=== PATIENT | female | born 1935 | race Two or more races ===

== ENCOUNTER → 2016-11-21 | Outpatient (CLI) | payer MEDICARE, OTHER ==
[~2016-11-21] VITALS: Ht 165.1 cm; Wt 72.6 kg
[~2016-11-21] MED LIST: ADENOSINE 61 MG in GIVE UN-DILUTED 0 ML IV ONE; ADENOSINE 90 MG/30 ML INJ IV ONE
== END | disposition home or self-care (01) ==
LOC: Rad HDHVI 09:23
PROVIDERS: ATTEND Internal Medicine Cardiovascular Disease
DX: I10 Essential (primary) hypertension (principal); E78.00 Pure hypercholesterolemia, unspecified; R07.89 Other chest pain; R06.02 Shortness of breath; R00.1 Bradycardia, unspecified
CPT/HCPCS: 78452; 93005; 93306; 96374; 96375; A9500; J0153

== ENCOUNTER → 2018-01-15 | Outpatient (CLI) | payer MEDICARE, OTHER ==
[~2018-01-15] VITALS: Ht 165.1 cm; Wt 73.0 kg
== END | disposition home or self-care (01) ==
LOC: Rad HDHVI 10:19
PROVIDERS: ATTEND Internal Medicine Cardiovascular Disease
DX: I10 Essential (primary) hypertension (principal); E78.00 Pure hypercholesterolemia, unspecified; I63.9 Cerebral infarction, unspecified
CPT/HCPCS: 78452; 93005; 96374; 96375; A9500; J0153

== ENCOUNTER → 2018-10-20 | Outpatient (CLI) | payer MEDICARE, OTHER ==
[~2018-10-20] VITALS: Ht 165.1 cm; Wt 74.8 kg
[~2018-10-20] MED LIST changes: -ADENOSINE 61 MG in GIVE UN-DILUTED 0 ML IV ONE; +ADENOSINE 63 MG in GIVE UN-DILUTED 0 ML IV ONE
== END | disposition home or self-care (01) ==
LOC: Rad HDHVI 13:22
PROVIDERS: ATTEND Internal Medicine Cardiovascular Disease
DX: R00.2 Palpitations (principal); E78.5 Hyperlipidemia, unspecified; I49.5 Sick sinus syndrome; R55 Syncope and collapse; R53.83 Other fatigue; R61 Generalized hyperhidrosis
CPT/HCPCS: 78452; 93005; 96374; 96375; A9500; J0153

== ENCOUNTER 2019-05-10 12:30 | Emergency (ER) | payer MEDICARE, OTHER ==
[~2019-05-10] VITALS: Ht 165.1 cm; Wt 69.9 kg
[2019-05-10 14:00] VITALS: BP 171/58
== END 2019-05-10 14:59 | disposition home or self-care (01) ==
LOC: EDUNIT# 12:30 → ER 12:36
DX: S52.514A Nondisplaced fracture of right radial styloid process, initial encounter for closed fracture (principal); S00.81XA Abrasion of other part of head, initial encounter; S60.512A Abrasion of left hand, initial encounter; I10 Essential (primary) hypertension; Z90.49 Acquired absence of other specified parts of digestive tract; Z90.710 Acquired absence of both cervix and uterus; Z88.8 Allergy status to other drugs, medicaments and biological substances; Z88.5 Allergy status to narcotic agent; W10.9XXA Fall (on) (from) unspecified stairs and steps, initial encounter; Y93.89 Activity, other specified; Y92.89 Other specified places as the place of occurrence of the external cause; Y99.8 Other external cause status
CPT/HCPCS: 29125; 70450; 73100; 73120

== ENCOUNTER → 2019-07-01 | Outpatient (CLI) | payer MEDICARE, OTHER ==
[~2019-07-01] MED LIST changes: -ADENOSINE 63 MG in GIVE UN-DILUTED 0 ML IV ONE; -ADENOSINE 90 MG/30 ML INJ IV ONE; +IOHEXOL 350 MG/ML 100ML IJ ONE
[2019-07-01 09:16] VITALS: BP 179/58
--- NOTE | 2019-07-01 09:20 | NUR ---
IV insertion IV access obtained, via clean sterile technique by inserting [22] gauge catheter at [L FOREARM] after [1] attempt(s). IV secured properly. No trauma to site. Patient tolerated procedure well.
--- NOTE | 2019-07-01 11:55 | NUR ---
IV removal IV DC'd with sterile technique BY LUCRETIA MCKENNA, catheter fully intact. Pressure dressing applied to site. Patient tolerated procedure well. Discharged with aftercare instructions per MD.
[2019-07-01 11:56] VITALS: BP 181/68
--- NOTE | 2019-07-01 11:56 | NUR ---
[facility] Discharge Instructions See e-MAR for any mediations given with this visit. Patient education given on disease process. Patient verbalized understanding. Previous labs reviewed. Patient discharged in stable condition with after care instructions and follow up appointment. NOTES CT BRAIN WITH IV CONTRAST PT BLOOD PRESSURE WAS ELEVATED. PT STATED SHE DID NOT TAKE HOME MEDICATIONS THIS MORNING FOR THE EXAM. WHILE IN OFFICE PT TOOK PO HOME BLOOD PRESSURE MEDICATIONS. AFTER CT, PT BLOOD PRESSURE RETURNED TO BASELINE ARRIVAL BP. PT DECLINED WANTING TO WAIT FURTHER TO SEE IF BLOOD PRESSURE WOULD COME DOWN. PT STATED SHE HAS ANOTHER BLOOD PRESSURE PRN PILL AT HOME SHE CAN TAKE. PT REMAINS ASYMPTOMATIC AND DECLINES CHEST PAIN, HEADACHES, PALPITATIONS, OR BLURRY VISION. PT EDUCATED TO CHECK BLOOD PRESSURE IN 30 MINS ONCE HOME AND TAKE NORMAL SCHEDULE PRN BLOOD PRESSURE PILL. PT EDUCATED THAT IF BLOOD PRESSURE DOESN'T COME DOWN TO PATIENTS NORMAL BASELINE THAT SHE NEEDS TO RETURN TO CLINIC OR SEEK MEDICAL ATTENTION. PT VERBALIZED UNDERSTANDING. Addendum: 07/01/19 at 1207 by LUCRETIA FENG RN PT ALSO EDUCATED TO INCREASE ORAL HYDRATION OVER THE NEXT 24 HOURS. PT VERBALIZED UNDERSTANDING.
== END | disposition home or self-care (01) ==
LOC: Rad HDHVI 09:02
PROVIDERS: ATTEND Internal Medicine Cardiovascular Disease
DX: I67.2 Cerebral atherosclerosis (principal); G31.9 Degenerative disease of nervous system, unspecified; I67.82 Cerebral ischemia; R94.4 Abnormal results of kidney function studies; I72.9 Aneurysm of unspecified site; R51 Headache
CPT/HCPCS: 36415; 70496; 82565; G0463; Q9967

== ENCOUNTER → 2019-10-19 | Outpatient (CLI) | payer MEDICARE, OTHER ==
[~2019-10-19] VITALS: Ht 165.1 cm; Wt 71.7 kg
[~2019-10-19] MED LIST changes: +ADENOSINE 60 MG in GIVE UN-DILUTED 0 ML IV ONE; +ADENOSINE 90 MG/30 ML INJ IV ONE; -IOHEXOL 350 MG/ML 100ML IJ ONE
== END | disposition home or self-care (01) ==
LOC: Rad HDHVI 09:27
PROVIDERS: ATTEND Internal Medicine Cardiovascular Disease
DX: I10 Essential (primary) hypertension (principal); Z79.899 Other long term (current) drug therapy
CPT/HCPCS: 78452; 93005; 96374; 96375; A9500; J0153

== ENCOUNTER → 2020-03-23 | Outpatient (CLI) | payer MEDICARE, OTHER | END | disposition home or self-care (01) | LOC: Rad HDHVI 13:03 | PROVIDERS: ATTEND Internal Medicine Cardiovascular Disease | DX: I67.2 Cerebral atherosclerosis (principal); I67.82 Cerebral ischemia; G31.89 Other specified degenerative diseases of nervous system | CPT/HCPCS: 70450 ==

== ENCOUNTER → 2020-04-01 | Outpatient (CLI) | payer MEDICARE, OTHER | END | disposition home or self-care (01) | LOC: Rad HDHVI 10:09 | PROVIDERS: ATTEND Internal Medicine Cardiovascular Disease | DX: I63.9 Cerebral infarction, unspecified (principal); G45.9 Transient cerebral ischemic attack, unspecified | CPT/HCPCS: 93880 ==

== ENCOUNTER → 2020-04-04 | Outpatient (CLI) | payer MEDICARE, OTHER | END | disposition home or self-care (01) | LOC: Rad HDHVI 11:06 | PROVIDERS: ATTEND Internal Medicine Cardiovascular Disease | DX: R00.2 Palpitations (principal); R06.02 Shortness of breath; I10 Essential (primary) hypertension | CPT/HCPCS: 93306 ==

== ENCOUNTER → 2020-04-22 | Outpatient (CLI) | payer MEDICARE, OTHER ==
[~2020-04-22] MED LIST changes: -ADENOSINE 60 MG in GIVE UN-DILUTED 0 ML IV ONE; -ADENOSINE 90 MG/30 ML INJ IV ONE; +ASPI-543 PO; +ATEN-60 PO; +DOXA2TAB PO; +EST0625T PO; +FAMO40TA7 PO; +LEVO50TA7 PO; +MULT-1018 PO; +OLME40TA26 PO; +OMEG120015 PO; +OMEG120017 PO; +PANT20TA59 PO
[2020-04-22 10:48] VITALS: BP 147/63
--- NOTE | 2020-04-22 10:48 | NUR ---
CLINIC PT ARRIVED TO THE [facility] FOR PRE OP LHC EKG, CXR, AND LABS RE CHF, HTN, SOB TIA, EDEMA,A/OX4, AMBULATORY, BREATHING IS EVEN AND UNLABORED.
--- NOTE | 2020-04-22 10:52 | NUR ---
EKG DONE BY GABRIELLA MCKENNA REVIEWED BY SIVAKUMAR ROJAS SB [id number]
[2020-04-22 11:02] VITALS: BP 172/62
--- NOTE | 2020-04-22 11:02 | NUR ---
Pre-Op Discharge Summary: See e-MAR for any medications given for this visit. Pre-op orders received and carried out per MD of EKG, LABS and chest xrays. Patient given a copy of EKG with instructions to go to [facility] out patient for further follow up care. NOTE EKG DONE BY GABRIELLA MCKENNA REVIEWED BY SIVAKUMAR ROJAS
[2020-04-22 11:39] LABS: Basophils # (auto) 0 10 ^3/uL (0-0.2); Basophils % (auto) 0.8 % (0.0-2.0); Eosinophils # (auto) 0.1 10 ^3/uL (0-0.8); Eosinophils % (auto) 1.9 % (0.0-7.0); Hematocrit 33.6 % (36.0-46.0); Hemoglobin 11.6 g/dL (12.2-16.2); Lymphocytes # (auto) 0.6 10 ^3/uL (0.4-5.4); Lymphocytes % (auto) 15.2 % (10.0-50.0); Mean Corpuscular Hemoglobin 30.8 pg (28.0-32.0); Mean Corpuscular Hgb Conc. 34.5 g/dL (32.0-36.0); Mean Corpuscular Volume 89.2 fL (80.0-100.0); Monocytes # (auto) 0.4 10 ^3/uL (0-1.3); Monocytes % (auto) 11.1 % (0.0-12.0); Neutrophils # (auto) 2.8 10 ^3/uL (1.6-8.6); Nucleated Red Blood Cells % 0.1 %; Platelet Count (auto) 214 10^3/uL (140-450); Red Blood Cells 3.77 10^6/uL (4.0-5.20); Red Cell Distribution Width 14.5 % (11.8-14.3)
[2020-04-22 12:00] LABS: INR 1.03 (0.9-1.15); Partial Thromboplastin Time 28.5 sec (23.0-31.2)
[2020-04-22 12:03] LABS: Potassium 4.2 mmol/L (3.5-5.1)
[2020-04-22 12:11] LABS: BUN/Creatinine Ratio 12.4; Calcium 9.1 mg/dL (8.5-10.1)
== END | disposition home or self-care (01) ==
LOC: Rad HDHVI 10:15
PROVIDERS: ATTEND Internal Medicine Cardiovascular Disease
DX: Z01.812 Encounter for preprocedural laboratory examination (principal); I70.0 Atherosclerosis of aorta; I10 Essential (primary) hypertension
CPT/HCPCS: 36415; 71046; 80048; 85025; 85610; 85730; 93005; G0463

== ENCOUNTER 2020-04-28 07:53 | Day surgery (SDC) | payer MEDICARE, OTHER ==
[~2020-04-28] VITALS: Ht 165.1 cm; Wt 70.3 kg
[2020-04-28] MEDS ORDERED: LIDOCAINE 2%HCL (LOCAL ANESTH.) INJ 20ML MDV ONE (09:42)
[2020-04-28] MEDS ORDERED: IOHEXOL 350 MG/ML 100ML IJ ONE (09:42)
[2020-04-28] MEDS ORDERED: ANGIOMAX 250 MG VIAL IV ONE (10:05)
[2020-04-28] MEDS ORDERED: MIDAZOLAM HCL 1MG/1ML-2 ML VIAL ONE (10:06)
[2020-04-28] MEDS ORDERED: fentaNYL CITRATE 100 MCG/2 ML VL ONE (10:06)
[2020-04-28] MEDS ORDERED: SODIUM CHL 0.9% 0 ML ONE (10:06)
[2020-04-28] MEDS ORDERED: ENALAPRILAT 1.25 MG/ML-1ML VIAL IV ONE (10:15)
[2020-04-28] MEDS ORDERED: hydrALAZINE HCL 20 MG/ML VL ONE (10:27)
== END 2020-04-28 12:48 | disposition home or self-care (01) ==
LOC: CATH 07:53
PROVIDERS: ATTEND Internal Medicine Cardiovascular Disease
DX: R07.89 Other chest pain (principal); I10 Essential (primary) hypertension; E78.5 Hyperlipidemia, unspecified; Z87.891 Personal history of nicotine dependence; Z79.82 Long term (current) use of aspirin; Z88.1 Allergy status to other antibiotic agents; Z20.828 Contact with and (suspected) exposure to other viral communicable diseases; Z98.890 Other specified postprocedural states; Z79.899 Other long term (current) drug therapy; Z88.5 Allergy status to narcotic agent; Z88.8 Allergy status to other drugs, medicaments and biological substances
CPT/HCPCS: 93458; C1760; C1894; J0360; J1644; J2250; J3010; J7030; Q9967; U0003; 99152

== ENCOUNTER → 2021-03-24 | Outpatient (CLI) | payer MEDICARE, OTHER | END | disposition home or self-care (01) | LOC: Rad HDHVI 09:52 | PROVIDERS: ATTEND Internal Medicine Cardiovascular Disease | DX: I65.23 Occlusion and stenosis of bilateral carotid arteries (principal); I10 Essential (primary) hypertension; R06.02 Shortness of breath | CPT/HCPCS: 93306; 93880 ==

== ENCOUNTER → 2021-08-16 | Outpatient (CLI) | payer MEDICARE, OTHER | END | disposition home or self-care (01) | LOC: Rad HDHVI 14:56 | PROVIDERS: ATTEND Internal Medicine Cardiovascular Disease | DX: I08.1 Rheumatic disorders of both mitral and tricuspid valves (principal); I73.9 Peripheral vascular disease, unspecified; E78.5 Hyperlipidemia, unspecified | CPT/HCPCS: 93306 ==

== ENCOUNTER → 2023-01-21 | Outpatient (CLI) | payer MEDICARE, OTHER ==
[~2023-01-21] MED LIST changes: -DOXA2TAB PO; +DOXA2TAB84 PO; -OLME40TA26 PO; +OLME40TA78 PO
== END | disposition home or self-care (01) ==
LOC: Rad HDHVI 15:04
PROVIDERS: ATTEND Internal Medicine Cardiovascular Disease
DX: I08.8 Other rheumatic multiple valve diseases (principal); I11.9 Hypertensive heart disease without heart failure; I65.21 Occlusion and stenosis of right carotid artery; R00.2 Palpitations
CPT/HCPCS: 93306; 93880

== ENCOUNTER 2023-03-01 14:43 | Inpatient (IN) | payer MEDICARE, OTHER ==
[~2023-03-01] VITALS: Ht 165.1 cm; Wt 70.9 kg
[2023-03-01 17:00] VITALS: BP 146/90; PULSE 109; RESP 16; TEMP 98.2; O2SAT 96
[2023-03-01 18:14] LABS: Basophils # (auto) 0 10 ^3/uL (0-0.2); Basophils % (auto) 0.6 % (0.0-2.0); Eosinophils # (auto) 0 10 ^3/uL (0-0.8); Eosinophils % (auto) 0.5 % (0.0-7.0); Hematocrit 33.4 % (36.0-46.0); Hemoglobin 10.6 g/dL (12.2-16.2); Lymphocytes # (auto) 0.5 10 ^3/uL (0.4-5.4); Lymphocytes % (auto) 10.2 % (10.0-50.0); Mean Corpuscular Hemoglobin 28.3 pg (28.0-32.0); Mean Corpuscular Hgb Conc. 31.8 g/dL (32.0-36.0); Mean Corpuscular Volume 89.1 fL (80.0-100.0); Monocytes # (auto) 0.4 10 ^3/uL (0-1.3); Monocytes % (auto) 7.9 % (0.0-12.0); Neutrophils # (auto) 4.1 10 ^3/uL (1.6-8.6); Neutrophils % (auto) 80.8 % (37.0-80.0); Nucleated Red Blood Cells % 0.1 %; Red Blood Cells 3.74 10^6/uL (4.0-5.20); Red Cell Distribution Width 15.8 % (11.8-14.3); White Blood Cell 5.1 10^3/uL (4.4-10.8)
[2023-03-01 18:22] LABS: Alanine Aminotransferase 26 U/L (7-40); Albumin 4.1 g/dL (3.2-4.8); Alkaline Phosphatase 99 U/L (46-116); Anion Gap 7.6 (5-15); Aspartate Aminotransferase 28 U/L (13-40); BUN/Creatinine Ratio 10.8 (10.0-20.0); Blood Urea Nitrogen 9 mg/dL (9-23); Carbon Dioxide 23.4 mmol/L (20-30); Chloride 99 mmol/L (98-107); Glucose 116 mg/dL (74-106); Potassium 3.9 mmol/L (3.5-5.1); Sodium 130 mmol/L (136-145); Total Protein 6.9 g/dL (5.7-8.2)
[2023-03-01 18:43] VITALS: BP 146/90; PULSE 109; RESP 16; TEMP 98.2; O2SAT 96
[2023-03-01] MEDS ORDERED: NITROGLYCERIN 0.4 MG SL TAB SL PRN (18:45)
[2023-03-01] MEDS: FUROSEMIDE 40 MG/4 ML VIAL IV SCH (18:47)
[2023-03-01] MEDS: SODIUM CHLORIDE 0.9% 1,000 ML IV SCH (18:47)
[2023-03-01 20:00] VITALS: BP 131/70; PULSE 110; RESP 18; TEMP 97.6; O2SAT 95
[2023-03-01] MEDS: ALPRAZolam 0.25 MG TAB PO SCH (21:41)
[2023-03-01 22:00] VITALS: BP 131/70; PULSE 110; RESP 18; TEMP 97.6; O2SAT 95
[2023-03-02 05:00] VITALS: BP 148/77; PULSE 104; RESP 20; TEMP 98.2; O2SAT 90
[2023-03-02] MEDS: FUROSEMIDE 40 MG/4 ML VIAL IV SCH ×2 (05:37→18:11)
[2023-03-02] MEDS: LEVOTHYROXINE SODIUM 100 MCG TAB PO SCH (06:05)
[2023-03-02 09:00] VITALS: BP 139/79; PULSE 113; RESP 18; TEMP 97.3; O2SAT 92
[2023-03-02] MEDS: ALPRAZolam 0.25 MG TAB PO SCH ×2 (10:00→21:35)
[2023-03-02] MEDS: POTASSIUM CHL 20 Meq TABLET PO SCH (10:26)
[2023-03-02 13:00] VITALS: BP 149/78; PULSE 111; RESP 18; TEMP 97.5; O2SAT 94
[2023-03-02] MEDS: SODIUM FERR GLUC 62.5MG/5ML 125 MG in SODIUM CHL 0.9% 100 ML IV SCH (13:15)
[2023-03-02 17:00] VITALS: BP 143/93; PULSE 112; RESP 19; TEMP 97.8; O2SAT 93
[2023-03-02 22:00] VITALS: BP 148/75; PULSE 117; RESP 19; TEMP 97.7; O2SAT 94
[2023-03-03] VITALS (7 sets, daily range): BP systolic 135–159; BP diastolic 52–79; PULSE 115–118; RESP 16–20; TEMP 97.5–98.7; O2SAT 90–92
[2023-03-03] MEDS: FUROSEMIDE 40 MG/4 ML VIAL IV SCH ×3 (05:38→17:12)
[2023-03-03] MEDS: LEVOTHYROXINE SODIUM 100 MCG TAB PO SCH (06:31)
[2023-03-03] MEDS: POTASSIUM CHL 20 Meq TABLET PO SCH (09:31)
[2023-03-03 10:52] LABS: Basophils # (auto) 0 10 ^3/uL (0-0.2); Basophils % (auto) 0.4 % (0.0-2.0); Eosinophils # (auto) 0 10 ^3/uL (0-0.8); Eosinophils % (auto) 0.5 % (0.0-7.0); Hematocrit 32.6 % (36.0-46.0); Hemoglobin 10.6 g/dL (12.2-16.2); Lymphocytes # (auto) 0.4 10 ^3/uL (0.4-5.4); Lymphocytes % (auto) 6.8 % (10.0-50.0); Mean Corpuscular Hemoglobin 28.3 pg (28.0-32.0); Mean Corpuscular Hgb Conc. 32.5 g/dL (32.0-36.0); Mean Corpuscular Volume 86.9 fL (80.0-100.0); Monocytes # (auto) 0.5 10 ^3/uL (0-1.3); Monocytes % (auto) 9.2 % (0.0-12.0); Neutrophils # (auto) 4.4 10 ^3/uL (1.6-8.6); Neutrophils % (auto) 83.1 % (37.0-80.0); Red Blood Cells 3.75 10^6/uL (4.0-5.20); Red Cell Distribution Width 15.3 % (11.8-14.3); White Blood Cell 5.3 10^3/uL (4.4-10.8)
[2023-03-03 11:15] LABS: Alanine Aminotransferase 28 U/L (7-40); Albumin 4.1 g/dL (3.2-4.8); Alkaline Phosphatase 90 U/L (46-116); Anion Gap 8.6 (5-15); Aspartate Aminotransferase 32 U/L (13-40); BUN/Creatinine Ratio 10.7 (10.0-20.0); Bilirubin, Total 1.3 mg/dL (0.2-1.0); Blood Urea Nitrogen 9 mg/dL (9-23); Calcium 9.1 mg/dL (8.5-10.1); Carbon Dioxide 28.4 mmol/L (20-30); Chloride 94 mmol/L (98-107); Glucose 161 mg/dL (74-106); Potassium 3.2 mmol/L (3.5-5.1); Sodium 131 mmol/L (136-145); Total Protein 6.9 g/dL (5.7-8.2)
[2023-03-03] MEDS ORDERED: SODIUM FERR GLUC 62.5MG/5ML 125 MG in SODIUM CHL 0.9% 100 ML IV SCH (12:00)
[2023-03-03] MEDS: SODIUM CHLORIDE 0.9% 1,000 ML IV SCH (16:36)
[2023-03-03] MEDS: LORazepam 0.5 MG TAB PO PRN (21:55)
[2023-03-04] VITALS (7 sets, daily range): BP systolic 142–162; BP diastolic 68–85; PULSE 103–119; RESP 16–22; TEMP 97.7–98.5; O2SAT 90–96
[2023-03-04] MEDS: FUROSEMIDE 40 MG/4 ML VIAL IV SCH ×2 (05:13→17:57)
[2023-03-04] MEDS: LEVOTHYROXINE SODIUM 100 MCG TAB PO SCH (05:54)
[2023-03-04] MEDS: POTASSIUM CHL 20 Meq TABLET PO SCH (07:59)
[2023-03-04] MEDS: SODIUM FERR GLUC 62.5MG/5ML 125 MG in SODIUM CHL 0.9% 100 ML IV SCH (12:58)
[2023-03-04] MEDS: SODIUM CHLORIDE 0.9% 1,000 ML IV SCH (17:56)
[2023-03-04] MEDS: LORazepam 0.5 MG TAB PO PRN (22:27)
[2023-03-05] VITALS (7 sets, daily range): BP systolic 136–152; BP diastolic 65–75; PULSE 116–128; RESP 16–20; TEMP 97.5–98.1; O2SAT 90–97
[2023-03-05] MEDS: FUROSEMIDE 40 MG/4 ML VIAL IV SCH ×2 (05:19→18:19)
[2023-03-05] MEDS: LEVOTHYROXINE SODIUM 100 MCG TAB PO SCH (05:50)
[2023-03-05 07:01] LABS: Chloride 94 mmol/L (98-107); Sodium 130 mmol/L (136-145)
[2023-03-05 07:02] LABS: Anion Gap 6.6 (5-15); Carbon Dioxide 29.4 mmol/L (20-30)
[2023-03-05 07:07] LABS: BUN/Creatinine Ratio 11.8 (10.0-20.0); Blood Urea Nitrogen 10 mg/dL (9-23); Glucose 108 mg/dL (74-106)
[2023-03-05 07:10] LABS: Potassium 2.7 mmol/L (3.5-5.1)
[2023-03-05 07:25] LABS: Basophils # (auto) 0 10 ^3/uL (0-0.2); Basophils % (auto) 0.3 % (0.0-2.0); Eosinophils # (auto) 0.1 10 ^3/uL (0-0.8); Eosinophils % (auto) 1.4 % (0.0-7.0); Hematocrit 34.2 % (36.0-46.0); Hemoglobin 11.6 g/dL (12.2-16.2); Lymphocytes # (auto) 0.5 10 ^3/uL (0.4-5.4); Lymphocytes % (auto) 10.2 % (10.0-50.0); Mean Corpuscular Hgb Conc. 33.8 g/dL (32.0-36.0); Monocytes # (auto) 0.5 10 ^3/uL (0-1.3); Monocytes % (auto) 8.7 % (0.0-12.0); Neutrophils # (auto) 4.2 10 ^3/uL (1.6-8.6); Neutrophils % (auto) 79.4 % (37.0-80.0); Nucleated Red Blood Cells % 0.1 %; Red Blood Cells 3.98 10^6/uL (4.0-5.20); Red Cell Distribution Width 15.3 % (11.8-14.3); White Blood Cell 5.3 10^3/uL (4.4-10.8)
[2023-03-05] MEDS ORDERED: POTASSIUM CHL 20 Meq TABLET PO ONE (07:30)
[2023-03-05] MEDS ORDERED: POTASSIUM CHLORIDE 60 MEQ, LIDOCAINE 1% (LOCAL ANESTH.) 6 ML in SODIUM CHL 0.9% 500 ML IV ONE (08:00)
[2023-03-05] MEDS: POTASSIUM CHL 20 Meq TABLET PO SCH (09:16)
[2023-03-05] MEDS: SODIUM FERR GLUC 62.5MG/5ML 125 MG in SODIUM CHL 0.9% 100 ML IV SCH (13:33)
[2023-03-05] MEDS: ACETAMINOPHEN 325 MG TAB PO PRN ×2 (15:42→21:25)
[2023-03-05] MEDS: SODIUM CHLORIDE 0.9% 1,000 ML IV SCH (17:00)
[2023-03-05] MEDS: LORazepam 0.5 MG TAB PO PRN (21:23)
[2023-03-06] VITALS (7 sets, daily range): BP systolic 109–142; BP diastolic 55–79; PULSE 82–120; RESP 16–20; TEMP 97.5–97.8; O2SAT 93–97
[2023-03-06] MEDS: FUROSEMIDE 40 MG/4 ML VIAL IV SCH ×2 (05:12→17:39)
[2023-03-06] MEDS: ACETAMINOPHEN 325 MG TAB PO PRN ×3 (05:44→22:11)
[2023-03-06] MEDS: LEVOTHYROXINE SODIUM 50 MCG TAB PO SCH (05:44)
[2023-03-06] MEDS: POTASSIUM CHL 20 Meq TABLET PO SCH (09:27)
[2023-03-06] MEDS: ATENOLOL 25 MG TAB PO SCH (09:28)
[2023-03-06] MEDS: SODIUM FERR GLUC 62.5MG/5ML 125 MG in SODIUM CHL 0.9% 100 ML IV SCH (13:16)
[2023-03-06] MEDS: SODIUM CHLORIDE 0.9% 1,000 ML IV SCH (17:00)
[2023-03-06] MEDS: DOCUSATE SOD 100 MG CAP PO SCH (22:06)
[2023-03-06] MEDS: AMIODARONE HCL 200 MG TAB PO SCH (22:08)
[2023-03-06] MEDS: LORazepam 0.5 MG TAB PO PRN (22:11)
[2023-03-07 05:00] VITALS: BP 138/75; PULSE 105; RESP 18; TEMP 97.7; O2SAT 95
[2023-03-07] MEDS: FUROSEMIDE 40 MG/4 ML VIAL IV SCH ×2 (06:22→17:58)
[2023-03-07] MEDS: LEVOTHYROXINE SODIUM 50 MCG TAB PO SCH (06:22)
[2023-03-07 08:00] VITALS: BP 134/63; PULSE 84; PULSE 88; RESP 20; TEMP 97.7; O2SAT 91
[2023-03-07] MEDS: ATENOLOL 25 MG TAB PO SCH ×2 (08:36→10:00)
[2023-03-07] MEDS: ACETAMINOPHEN 325 MG TAB PO PRN ×2 (09:18→21:50)
[2023-03-07] MEDS: DOCUSATE SOD 100 MG CAP PO SCH ×2 (09:18→21:50)
[2023-03-07] MEDS: POTASSIUM CHL 20 Meq TABLET PO SCH (09:19)
[2023-03-07] MEDS: AMIODARONE HCL 200 MG TAB PO SCH ×2 (09:19→21:49)
[2023-03-07 11:13] LABS: Basophils # (auto) 0 10 ^3/uL (0-0.2); Basophils % (auto) 0.5 % (0.0-2.0); Eosinophils # (auto) 0 10 ^3/uL (0-0.8); Eosinophils % (auto) 0.6 % (0.0-7.0); Hemoglobin 12.4 g/dL (12.2-16.2); Lymphocytes # (auto) 0.4 10 ^3/uL (0.4-5.4); Mean Corpuscular Hemoglobin 28.7 pg (28.0-32.0); Mean Corpuscular Hgb Conc. 32.6 g/dL (32.0-36.0); Monocytes # (auto) 0.4 10 ^3/uL (0-1.3); Monocytes % (auto) 6.3 % (0.0-12.0); Neutrophils # (auto) 6.2 10 ^3/uL (1.6-8.6); Neutrophils % (auto) 86.6 % (37.0-80.0); Nucleated Red Blood Cells % 0.1 %; Red Blood Cells 4.32 10^6/uL (4.0-5.20); Red Cell Distribution Width 15.8 % (11.8-14.3); White Blood Cell 7.1 10^3/uL (4.4-10.8)
[2023-03-07 11:20] LABS: Chloride 93 mmol/L (98-107); Potassium 3.6 mmol/L (3.5-5.1); Sodium 128 mmol/L (136-145)
[2023-03-07 11:21] LABS: Anion Gap 7 (5-15); Carbon Dioxide 28 mmol/L (20-30)
[2023-03-07 11:22] LABS: Calcium 9.3 mg/dL (8.7-10.4)
[2023-03-07 11:26] LABS: Glucose 159 mg/dL (74-106)
[2023-03-07 11:27] LABS: BUN/Creatinine Ratio 14.4 (10.0-20.0); Blood Urea Nitrogen 14 mg/dL (9-23)
[2023-03-07 12:00] VITALS: BP 129/63; PULSE 72; RESP 18; TEMP 97.3; O2SAT 95
[2023-03-07 16:00] VITALS: BP 102/61; PULSE 79; RESP 19; TEMP 97.4; O2SAT 94
[2023-03-07] MEDS: SODIUM CHLORIDE 0.9% 1,000 ML IV SCH (17:54)
[2023-03-07 20:00] VITALS: PULSE 99; O2SAT 93
[2023-03-07] MEDS: LORazepam 0.5 MG TAB PO PRN (21:50)
[2023-03-07 22:00] VITALS: BP 132/61; PULSE 93; RESP 16; TEMP 97.8; O2SAT 94
[2023-03-08] VITALS (7 sets, daily range): BP systolic 107–142; BP diastolic 55–71; PULSE 70–95; RESP 16–19; TEMP 97.2–98.2; O2SAT 91–99
[2023-03-08] MEDS: LEVOTHYROXINE SODIUM 50 MCG TAB PO SCH (06:37)
[2023-03-08] MEDS: FUROSEMIDE 40 MG/4 ML VIAL IV SCH ×2 (06:42→15:41)
[2023-03-08] MEDS: ATENOLOL 25 MG TAB PO SCH (09:07)
[2023-03-08] MEDS: ACETAMINOPHEN 325 MG TAB PO PRN ×2 (09:09→15:39)
[2023-03-08] MEDS: POTASSIUM CHL 20 Meq TABLET PO SCH (09:56)
[2023-03-08] MEDS: AMIODARONE HCL 200 MG TAB PO SCH ×2 (09:56→21:23)
[2023-03-08] MEDS: DOCUSATE SOD 100 MG CAP PO SCH ×2 (09:56→21:23)
[2023-03-08] MEDS: LORazepam 0.5 MG TAB PO PRN (21:23)
[2023-03-09] VITALS (7 sets, daily range): BP systolic 104–130; BP diastolic 63–80; PULSE 59–98; RESP 18–22; TEMP 36.6; O2SAT 92–100
[2023-03-09] MEDS: LEVOTHYROXINE SODIUM 50 MCG TAB PO SCH (06:07)
[2023-03-09 07:21] LABS: Chloride 93 mmol/L (98-107); Potassium 3.8 mmol/L (3.5-5.1); Sodium 127 mmol/L (136-145)
[2023-03-09 07:22] LABS: Anion Gap 10 (5-15); Calcium 9.3 mg/dL (8.7-10.4); Carbon Dioxide 24 mmol/L (20-30)
[2023-03-09 07:27] LABS: BUN/Creatinine Ratio 19.3 (10.0-20.0); Blood Urea Nitrogen 23 mg/dL (9-23); Glucose 122 mg/dL (74-106)
[2023-03-09] MEDS: ATENOLOL 25 MG TAB PO SCH (08:30)
[2023-03-09] MEDS: FUROSEMIDE 40 MG/4 ML VIAL IV SCH (10:00)
[2023-03-09] MEDS: DOCUSATE SOD 100 MG CAP PO SCH ×2 (10:25→20:55)
[2023-03-09] MEDS: POTASSIUM CHL 20 Meq TABLET PO SCH (10:25)
[2023-03-09] MEDS: ACETAMINOPHEN 325 MG TAB PO PRN (10:26)
[2023-03-09] MEDS: AMIODARONE HCL 200 MG TAB PO SCH ×2 (10:26→20:55)
[2023-03-09] MEDS: LORazepam 0.5 MG TAB PO PRN (20:53)
[2023-03-10] VITALS (7 sets, daily range): BP systolic 109–143; BP diastolic 54–77; PULSE 72–90; RESP 16–19; TEMP 97.6–98.1; O2SAT 95–100
[2023-03-10] MEDS: LEVOTHYROXINE SODIUM 50 MCG TAB PO SCH (06:13)
[2023-03-10] MEDS: ATENOLOL 25 MG TAB PO SCH (07:37)
[2023-03-10] MEDS: DOCUSATE SOD 100 MG CAP PO SCH ×2 (10:05→21:11)
[2023-03-10] MEDS: AMIODARONE HCL 200 MG TAB PO SCH ×2 (10:05→21:11)
[2023-03-10] MEDS: POTASSIUM CHL 20 Meq TABLET PO SCH (10:05)
[2023-03-10] MEDS: FUROSEMIDE 40 MG/4 ML VIAL IV SCH (10:06)
[2023-03-10] MEDS: ACETAMINOPHEN 325 MG TAB PO PRN (12:56)
[2023-03-10] MEDS: LORazepam 0.5 MG TAB PO PRN (21:11)
[2023-03-11] VITALS (7 sets, daily range): BP systolic 102–135; BP diastolic 54–78; PULSE 82–88; RESP 15–22; TEMP 97.3–97.9; O2SAT 94–100
[2023-03-11] MEDS: LEVOTHYROXINE SODIUM 50 MCG TAB PO SCH (06:06)
[2023-03-11] MEDS: AMIODARONE HCL 200 MG TAB PO SCH ×3 (10:00→21:08)
[2023-03-11] MEDS: FUROSEMIDE 40 MG/4 ML VIAL IV SCH (12:16)
[2023-03-11] MEDS: DOCUSATE SOD 100 MG CAP PO SCH ×2 (12:16→21:07)
[2023-03-11] MEDS: ATENOLOL 25 MG TAB PO SCH (12:17)
[2023-03-11] MEDS: POTASSIUM CHL 20 Meq TABLET PO SCH (12:17)
[2023-03-11] MEDS: ACETAMINOPHEN 325 MG TAB PO PRN (19:59)
[2023-03-11] MEDS: LORazepam 0.5 MG TAB PO PRN (21:07)
[2023-03-12 06:02] VITALS: BP 138/79; PULSE 76; RESP 15; O2SAT 95
[2023-03-12] MEDS: LEVOTHYROXINE SODIUM 50 MCG TAB PO SCH (06:13)
[2023-03-12 08:00] VITALS: PULSE 87
[2023-03-12 08:43] VITALS: BP 142/69; PULSE 85; RESP 18; TEMP 97.4; O2SAT 93
[2023-03-12] MEDS: FUROSEMIDE 40 MG/4 ML VIAL IV SCH (09:15)
[2023-03-12] MEDS: AMIODARONE HCL 200 MG TAB PO SCH ×2 (09:15→21:41)
[2023-03-12] MEDS: ATENOLOL 25 MG TAB PO SCH (09:15)
[2023-03-12] MEDS: DOCUSATE SOD 100 MG CAP PO SCH ×2 (09:23→21:41)
[2023-03-12] MEDS: POTASSIUM CHL 20 Meq TABLET PO SCH (10:00)
[2023-03-12 13:00] VITALS: BP 109/48; PULSE 67; RESP 18; TEMP 98; O2SAT 98
[2023-03-12 14:44] LABS: Anion Gap 7 (5-15); Carbon Dioxide 26 mmol/L (20-30); Chloride 93 mmol/L (98-107); Potassium 4.6 mmol/L (3.5-5.1); Sodium 126 mmol/L (136-145)
[2023-03-12 14:45] LABS: Calcium 9.4 mg/dL (8.7-10.4)
[2023-03-12 14:50] LABS: BUN/Creatinine Ratio 26.6 (10.0-20.0); Blood Urea Nitrogen 37 mg/dL (9-23); Glucose 130 mg/dL (74-106)
[2023-03-12 16:43] VITALS: BP 131/85; PULSE 84; RESP 16; TEMP 97.5; O2SAT 97
[2023-03-12] MEDS: ACETAMINOPHEN 325 MG TAB PO PRN (17:35)
[2023-03-12 20:00] VITALS: PULSE 79; PULSE 83; RESP 19; O2SAT 92
[2023-03-12] MEDS: LORazepam 0.5 MG TAB PO PRN (21:47)
[2023-03-13] VITALS (8 sets, daily range): BP systolic 116–137; BP diastolic 62–80; PULSE 67–91; RESP 18–20; TEMP 95–98.2; O2SAT 90–99
[2023-03-13] MEDS: LEVOTHYROXINE SODIUM 50 MCG TAB PO SCH (06:45)
[2023-03-13] MEDS: POTASSIUM CHL 20 Meq TABLET PO SCH (09:20)
[2023-03-13] MEDS: ATENOLOL 25 MG TAB PO SCH (09:20)
[2023-03-13] MEDS: DOCUSATE SOD 100 MG CAP PO SCH ×2 (09:20→22:49)
[2023-03-13] MEDS: AMIODARONE HCL 200 MG TAB PO SCH ×2 (09:21→22:49)
[2023-03-13] MEDS: FUROSEMIDE 40 MG/4 ML VIAL IV SCH (11:14)
[2023-03-13] MEDS: LORazepam 0.5 MG TAB PO PRN (12:06)
[2023-03-14] VITALS (7 sets, daily range): BP systolic 113–155; BP diastolic 52–80; PULSE 71–88; RESP 15–20; TEMP 97.6–98.7; O2SAT 90–99
[2023-03-14] MEDS: LEVOTHYROXINE SODIUM 50 MCG TAB PO SCH (06:44)
[2023-03-14] MEDS: DOCUSATE SOD 100 MG CAP PO SCH ×2 (11:22→21:53)
[2023-03-14] MEDS: FUROSEMIDE 40 MG/4 ML VIAL IV SCH (11:22)
[2023-03-14] MEDS: ATENOLOL 25 MG TAB PO SCH (11:22)
[2023-03-14] MEDS: AMIODARONE HCL 200 MG TAB PO SCH ×2 (11:22→21:53)
[2023-03-14] MEDS: POTASSIUM CHL 20 Meq TABLET PO SCH (11:25)
[2023-03-14] MEDS: ACETAMINOPHEN 325 MG TAB PO PRN (21:54)
[2023-03-14] MEDS: LORazepam 0.5 MG TAB PO PRN (23:31)
[2023-03-15] VITALS (7 sets, daily range): BP systolic 111–140; BP diastolic 55–63; PULSE 61–89; RESP 14–21; TEMP 97.3–97.9; O2SAT 92–99
[2023-03-15] MEDS: LEVOTHYROXINE SODIUM 50 MCG TAB PO SCH (06:23)
[2023-03-15] MEDS: AMIODARONE HCL 200 MG TAB PO SCH ×2 (09:59→22:09)
[2023-03-15] MEDS: POTASSIUM CHL 20 Meq TABLET PO SCH (10:00)
[2023-03-15] MEDS: FUROSEMIDE 40 MG/4 ML VIAL IV SCH (10:00)
[2023-03-15] MEDS: DOCUSATE SOD 100 MG CAP PO SCH ×2 (10:00→22:09)
[2023-03-15] MEDS: ATENOLOL 25 MG TAB PO SCH (10:01)
[2023-03-15 14:13] LABS: COVID19 ANTIGEN SOFIA FIA NEGATIVE (NEGATIVE)
[2023-03-15] MEDS ORDERED: SODIUM CHL 3% 500 ML IV ONE (14:45)
[2023-03-15] MEDS: ACETAMINOPHEN 325 MG TAB PO PRN (22:28)
[2023-03-15] MEDS: LORazepam 0.5 MG TAB PO PRN (22:28)
[2023-03-16] VITALS (7 sets, daily range): BP systolic 109–134; BP diastolic 68–76; PULSE 79–92; RESP 18–23; TEMP 95.9–97.6; O2SAT 95–100
[2023-03-16] MEDS: LEVOTHYROXINE SODIUM 50 MCG TAB PO SCH (06:36)
[2023-03-16 07:12] LABS: Calcium 8.9 mg/dL (8.7-10.4); Chloride 105 mmol/L (98-107); Potassium 4.2 mmol/L (3.5-5.1); Sodium 138 mmol/L (136-145)
[2023-03-16 07:13] LABS: Anion Gap 7 (5-15); Carbon Dioxide 26 mmol/L (20-30)
[2023-03-16 07:18] LABS: BUN/Creatinine Ratio 21.2 (10.0-20.0); Blood Urea Nitrogen 25 mg/dL (9-23); Glucose 113 mg/dL (74-106)
[2023-03-16] MEDS ORDERED: OMNIPAQUE 12mg/ml 500ml ORAL SOLUTION PO ONE (09:55)
[2023-03-16] MEDS: AMIODARONE HCL 200 MG TAB PO SCH ×2 (10:23→21:48)
[2023-03-16] MEDS: POTASSIUM CHL 20 Meq TABLET PO SCH (10:23)
[2023-03-16] MEDS: DOCUSATE SOD 100 MG CAP PO SCH ×2 (10:23→21:52)
[2023-03-16] MEDS: ATENOLOL 25 MG TAB PO SCH (10:24)
[2023-03-16] MEDS: FUROSEMIDE 40 MG/4 ML VIAL IV SCH (10:24)
[2023-03-16] MEDS ORDERED: IOHEXOL 300 MG/ML 100ML BOTTLE IJ ONE (11:32)
[2023-03-16] MEDS: LORazepam 0.5 MG TAB PO PRN (22:13)
[2023-03-17] VITALS (7 sets, daily range): BP systolic 91–128; BP diastolic 62–80; PULSE 72–89; RESP 18–22; TEMP 97.6–98; O2SAT 95–99
[2023-03-17] MEDS: LEVOTHYROXINE SODIUM 50 MCG TAB PO SCH (06:01)
[2023-03-17] MEDS: FUROSEMIDE 40 MG/4 ML VIAL IV SCH (09:29)
[2023-03-17] MEDS: ATENOLOL 25 MG TAB PO SCH (09:29)
[2023-03-17] MEDS: DOCUSATE SOD 100 MG CAP PO SCH ×2 (09:30→21:06)
[2023-03-17] MEDS: AMIODARONE HCL 200 MG TAB PO SCH ×2 (09:30→21:06)
[2023-03-17] MEDS: POTASSIUM CHL 20 Meq TABLET PO SCH (09:30)
[2023-03-18] VITALS (7 sets, daily range): BP systolic 109–139; BP diastolic 65–74; PULSE 61–89; RESP 18–20; TEMP 97.6–98.6; O2SAT 93–98
[2023-03-18] MEDS: LORazepam 0.5 MG TAB PO PRN ×2 (00:12→21:34)
[2023-03-18] MEDS: LEVOTHYROXINE SODIUM 50 MCG TAB PO SCH (06:06)
[2023-03-18] MEDS: ATENOLOL 25 MG TAB PO SCH ×2 (08:51→08:53)
[2023-03-18] MEDS: FUROSEMIDE 40 MG/4 ML VIAL IV SCH ×3 (10:00→21:38)
[2023-03-18] MEDS: DOCUSATE SOD 100 MG CAP PO SCH ×2 (10:57→21:34)
[2023-03-18] MEDS: POTASSIUM CHL 20 Meq TABLET PO SCH (10:58)
[2023-03-18] MEDS: AMIODARONE HCL 200 MG TAB PO SCH ×2 (10:58→21:34)
[2023-03-18 11:08] LABS: Basophils # (auto) 0 10 ^3/uL (0-0.2); Basophils % (auto) 0.7 % (0.0-2.0); Eosinophils # (auto) 0 10 ^3/uL (0-0.8); Eosinophils % (auto) 0.6 % (0.0-7.0); Hematocrit 36.4 % (36.0-46.0); Lymphocytes # (auto) 0.4 10 ^3/uL (0.4-5.4); Mean Corpuscular Hemoglobin 29.1 pg (28.0-32.0); Mean Corpuscular Hgb Conc. 32.9 g/dL (32.0-36.0); Mean Corpuscular Volume 88.6 fL (80.0-100.0); Monocytes # (auto) 0.5 10 ^3/uL (0-1.3); Monocytes % (auto) 8.1 % (0.0-12.0); Neutrophils # (auto) 4.8 10 ^3/uL (1.6-8.6); Neutrophils % (auto) 83.6 % (37.0-80.0); Red Blood Cells 4.11 10^6/uL (4.0-5.20); Red Cell Distribution Width 17.4 % (11.8-14.3); White Blood Cell 5.7 10^3/uL (4.4-10.8)
[2023-03-18 11:18] LABS: Anion Gap 6 (5-15); Carbon Dioxide 27 mmol/L (20-30); Chloride 98 mmol/L (98-107); Potassium 3.9 mmol/L (3.5-5.1); Sodium 131 mmol/L (136-145)
[2023-03-18 11:19] LABS: Calcium 8.9 mg/dL (8.7-10.4)
[2023-03-18 11:24] LABS: Blood Urea Nitrogen 19 mg/dL (9-23); Glucose 125 mg/dL (74-106)
[2023-03-19] VITALS (9 sets, daily range): BP systolic 112–138; BP diastolic 50–71; PULSE 71–88; RESP 16–20; TEMP 94–98.7; O2SAT 91–97
[2023-03-19] MEDS: LEVOTHYROXINE SODIUM 50 MCG TAB PO SCH (06:25)
[2023-03-19] MEDS: AMIODARONE HCL 200 MG TAB PO SCH ×2 (09:05→21:58)
[2023-03-19] MEDS: POTASSIUM CHL 20 Meq TABLET PO SCH (09:07)
[2023-03-19] MEDS: DOCUSATE SOD 100 MG CAP PO SCH ×2 (09:07→21:57)
[2023-03-19] MEDS: ATENOLOL 25 MG TAB PO SCH (09:07)
[2023-03-19] MEDS: FUROSEMIDE 40 MG/4 ML VIAL IV SCH ×2 (09:08→21:58)
[2023-03-20 05:00] VITALS: BP 121/65; PULSE 89; RESP 18; TEMP 97.6; O2SAT 92
[2023-03-20] MEDS: LEVOTHYROXINE SODIUM 50 MCG TAB PO SCH (06:50)
[2023-03-20 07:53] LABS: COVID19 ANTIGEN SOFIA FIA NEGATIVE (NEGATIVE)
[2023-03-20 08:00] VITALS: PULSE 80; PULSE 89; RESP 17; O2SAT 93
[2023-03-20 08:30] VITALS: BP 130/70; PULSE 80; RESP 17; TEMP 97.6; O2SAT 93
[2023-03-20] MEDS: AMIODARONE HCL 200 MG TAB PO SCH (09:05)
[2023-03-20] MEDS: DOCUSATE SOD 100 MG CAP PO SCH (09:05)
[2023-03-20] MEDS: POTASSIUM CHL 20 Meq TABLET PO SCH (09:05)
[2023-03-20] MEDS: ATENOLOL 25 MG TAB PO SCH (09:06)
[2023-03-20] MEDS: FUROSEMIDE 40 MG/4 ML VIAL IV SCH (09:07)
[2023-03-20 12:20] VITALS: BP 123/61; PULSE 65; RESP 18; TEMP 94; O2SAT 98
[2023-03-20] MEDS ORDERED: ONDANSETRON HCL 4 MG/2 ML VIAL IV PRN (14:15)
[2023-03-20] MEDS: ACETAMINOPHEN 325 MG TAB PO PRN (15:00)
== END 2023-03-20 16:20 | DRG 641 ==
LOC: CENTRAL 14:43 → UNDOADMIN 14:43 → CENTRAL 18:34 → TELE-CENTR 03-05 12:32
PROVIDERS: ADMIT Internal Medicine Cardiovascular Disease; ATTEND Internal Medicine Cardiovascular Disease
DX: E87.1 Hypo-osmolality and hyponatremia (principal); I50.22 Chronic systolic (congestive) heart failure; E87.6 Hypokalemia; I11.0 Hypertensive heart disease with heart failure; Z20.822 Contact with and (suspected) exposure to COVID-19; E78.5 Hyperlipidemia, unspecified; I07.1 Rheumatic tricuspid insufficiency; E87.5 Hyperkalemia; R00.0 Tachycardia, unspecified; Z88.5 Allergy status to narcotic agent; Z88.1 Allergy status to other antibiotic agents
CPT/HCPCS: 36415; 71045; 74177; 80048; 80053; 82024; 82533; 82962; 83880; 83935; 84132; 85025; 85045; 87081; 87426; 93005; 97110; 97116; 97163; 97530; G0378; J2001; J2405

== ENCOUNTER 2023-04-10 20:37 | Inpatient (IN) | payer MEDICARE, OTHER ==
[~2023-04-10] VITALS: Ht 165.1 cm; Wt 69.7 kg
[2023-04-10 21:52] LABS: Basophils # (auto) 0 10 ^3/uL (0-0.2); Basophils % (auto) 0.1 % (0.0-2.0); Eosinophils # (auto) 0 10 ^3/uL (0-0.8); Eosinophils % (auto) 0.1 % (0.0-7.0); Hematocrit 37.4 % (36.0-46.0); Lymphocytes # (auto) 0.3 10 ^3/uL (0.4-5.4); Lymphocytes % (auto) 2.1 % (10.0-50.0); Mean Corpuscular Hemoglobin 29.2 pg (28.0-32.0); Mean Corpuscular Hgb Conc. 32.2 g/dL (32.0-36.0); Mean Corpuscular Volume 90.8 fL (80.0-100.0); Monocytes # (auto) 0.4 10 ^3/uL (0-1.3); Monocytes % (auto) 3.2 % (0.0-12.0); Neutrophils # (auto) 12.9 10 ^3/uL (1.6-8.6); Neutrophils % (auto) 94.5 % (37.0-80.0); Nucleated Red Blood Cells % 0.2 %; Red Blood Cells 4.12 10^6/uL (4.0-5.20); White Blood Cell 13.6 10^3/uL (4.4-10.8)
[2023-04-10 21:55] LABS: Red Cell Distribution Width 20.7 % (11.8-14.3)
[2023-04-10 21:59] LABS: Alanine Aminotransferase 238 U/L (7-40); Albumin 4.1 g/dL (3.2-4.8); Alkaline Phosphatase 268 U/L (46-116); Anion Gap 15 (5-15); Aspartate Aminotransferase 334 U/L (13-40); Bilirubin, Total 2.5 mg/dL (0.2-1.0); Blood Urea Nitrogen 16 mg/dL (9-23); Calcium 9.3 mg/dL (8.7-10.4); Carbon Dioxide 15 mmol/L (20-30); Chloride 101 mmol/L (98-107); Magnesium 1.7 mg/dL (1.6-2.6); Potassium 4.9 mmol/L (3.5-5.1); Sodium 131 mmol/L (136-145); Total Protein 7.1 g/dL (5.7-8.2)
[2023-04-10 22:05] LABS: INR 2.23 (0.9-1.15); Partial Thromboplastin Time 29.8 SEC (24.5-34.5); Prothrombin Time 22.2 sec (9.3-11.8)
[2023-04-10 22:35] LABS: Glucose 105 mg/dL (74-106)
[2023-04-10 22:42] VITALS: PULSE 107; RESP 25; O2SAT 100
[2023-04-11] MEDS ORDERED: NITROGLYCERIN 0.4 MG SL TAB SL PRN (01:15)
[2023-04-11] MEDS ORDERED: ALBUTEROL SULF 2.5 MG/0.5ML(0.5%) NEB SOLN NEB PRN (01:15)
[2023-04-11] MEDS ORDERED: MORPHINE SULFATE INJ 2 MG/ml SYRG IV PRN (01:15)
[2023-04-11] MEDS ORDERED: ONDANSETRON HCL 4 MG/2 ML VIAL IV PRN (01:15)
[2023-04-11] MEDS ORDERED: FUROSEMIDE 20 MG/2 ML VIAL IV ONE (01:15)
[2023-04-11 01:38] VITALS: BP 139/65; PULSE 85; RESP 21; TEMP 97.6; O2SAT 97; O2SAT 98
[2023-04-11 02:53] LABS: Urine Bacteria MANY /hpf (None Seen); Urine Blood Negative /uL (Negative); Urine Clarity HAZY (Clear); Urine Color Yellow (Yellow); Urine Mucus FEW (None Seen); Urine Protein, UAD 1+ (Negative); Urine Specific Gravity 1.015 (1.001-1.035); Urine WBC 81 /hpf (0 - 5)
[2023-04-11] MEDS ORDERED: ATEN50TA PO (03:48)
[2023-04-11] MEDS ORDERED: FURO40TA4 PO (03:48)
[2023-04-11] MEDS ORDERED: AMIO200T33 PO (03:51)
[2023-04-11] MEDS ORDERED: DOCU-94 PO (03:51)
[2023-04-11] MEDS ORDERED: LORA-655 PO (03:51)
[2023-04-11 05:58] VITALS: O2SAT 3; O2SAT 99
[2023-04-11] MEDS ORDERED: FUROSEMIDE 20 MG/2 ML VIAL IV SCH (06:00)
[2023-04-11] MEDS: LEVOTHYROXINE SODIUM 50 MCG TAB PO SCH (06:51)
[2023-04-11] MEDS: levoFLOXacin 250MG 50 ML IV SCH (10:15)
[2023-04-11] MEDS: ATENOLOL 50 MG TAB PO SCH (10:15)
[2023-04-11] MEDS: ASPirin 81 mg TAB PO SCH (10:15)
[2023-04-11] MEDS: ENOXAPARIN SOD 30 MG/0.3 ML SYRINGE SC SCH (10:16)
[2023-04-11] MEDS ORDERED: FUROSEMIDE INJECTION 100 MG in D5W 5% 100 ML IV SCH (14:30)
[2023-04-11 19:00] VITALS: O2SAT 99
[2023-04-11] MEDS: LORazepam 0.5 MG TAB PO PRN (23:50)
[2023-04-12] VITALS (10 sets, daily range): BP systolic 109–134; BP diastolic 35–79; PULSE 65–93; RESP 18–20; TEMP 97.5–98.3; O2SAT 96–100
[2023-04-12] MEDS: LEVOTHYROXINE SODIUM 50 MCG TAB PO SCH (06:03)
[2023-04-12 06:14] LABS: Alanine Aminotransferase 325 U/L (7-40); Albumin 3.5 g/dL (3.2-4.8); Alkaline Phosphatase 192 U/L (46-116); Anion Gap 10 (5-15); Aspartate Aminotransferase 272 U/L (13-40); BUN/Creatinine Ratio 25.7 (10.0-20.0); Basophils # (auto) 0 10 ^3/uL (0-0.2); Basophils % (auto) 0.2 % (0.0-2.0); Bilirubin, Total 1.7 mg/dL (0.2-1.0); Calcium 8.5 mg/dL (8.5-10.1); Carbon Dioxide 24 mmol/L (20-30); Chloride 95 mmol/L (98-107); Eosinophils # (auto) 0.1 10 ^3/uL (0-0.8); Eosinophils % (auto) 0.8 % (0.0-7.0); Glucose 84 mg/dL (74-106); Hematocrit 31.9 % (36.0-46.0); Hemoglobin 10.8 g/dL (12.2-16.2); Lymphocytes # (auto) 0.4 10 ^3/uL (0.4-5.4); Lymphocytes % (auto) 5.3 % (10.0-50.0); Mean Corpuscular Hemoglobin 29.4 pg (28.0-32.0); Mean Corpuscular Hgb Conc. 33.9 g/dL (32.0-36.0); Mean Corpuscular Volume 86.7 fL (80.0-100.0); Monocytes # (auto) 0.4 10 ^3/uL (0-1.3); Neutrophils # (auto) 6.5 10 ^3/uL (1.6-8.6); Neutrophils % (auto) 88.7 % (37.0-80.0); Nucleated Red Blood Cells % 0.1 %; Red Blood Cells 3.68 10^6/uL (4.0-5.20); Red Cell Distribution Width 19.5 % (11.8-14.3); Sodium 129 mmol/L (136-145); White Blood Cell 7.3 10^3/uL (4.4-10.8)
[2023-04-12 06:15] LABS: Blood Urea Nitrogen 27 mg/dL (9-23)
[2023-04-12] MEDS: FUROSEMIDE INJECTION 100 MG in D5W 5% 100 ML IV SCH ×2 (07:05→17:23)
[2023-04-12] MEDS: ASPirin 81 mg TAB PO SCH (10:22)
[2023-04-12] MEDS: ATENOLOL 50 MG TAB PO SCH (10:23)
[2023-04-12] MEDS: levoFLOXacin 250MG 50 ML IV SCH (10:23)
[2023-04-12] MEDS: ENOXAPARIN SOD 30 MG/0.3 ML SYRINGE SC SCH (10:23)
[2023-04-12] MEDS ORDERED: POTASSIUM CHL 20 Meq TABLET PO ONE (14:00)
[2023-04-12] MEDS: ACETAMINOPHEN 325 MG TAB PO PRN (21:05)
[2023-04-12] MEDS: LORazepam 0.5 MG TAB PO PRN (22:10)
[2023-04-12] MEDS ORDERED: POTA-220 PO (22:16)
[2023-04-13] VITALS (9 sets, daily range): BP systolic 118–128; BP diastolic 47–80; PULSE 59–90; RESP 17–20; TEMP 97.4–99; O2SAT 94–100
[2023-04-13] MEDS: FUROSEMIDE INJECTION 100 MG in D5W 5% 100 ML IV SCH ×2 (03:10→16:38)
[2023-04-13] MEDS: LEVOTHYROXINE SODIUM 50 MCG TAB PO SCH (06:32)
[2023-04-13] MEDS: ENOXAPARIN SOD 30 MG/0.3 ML SYRINGE SC SCH ×2 (09:01→10:33)
[2023-04-13] MEDS: levoFLOXacin 250MG 50 ML IV SCH (10:33)
[2023-04-13] MEDS: ASPirin 81 mg TAB PO SCH (10:33)
[2023-04-13] MEDS: ATENOLOL 50 MG TAB PO SCH (10:34)
[2023-04-13 14:39] LABS: Basophils # (auto) 0.1 10 ^3/uL (0-0.2); Basophils % (auto) 1.3 % (0.0-2.0); Eosinophils # (auto) 0.1 10 ^3/uL (0-0.8); Hematocrit 35.4 % (36.0-46.0); Hemoglobin 11.7 g/dL (12.2-16.2); Lymphocytes # (auto) 0.3 10 ^3/uL (0.4-5.4); Lymphocytes % (auto) 4.5 % (10.0-50.0); Mean Corpuscular Hemoglobin 29.2 pg (28.0-32.0); Mean Corpuscular Volume 88.7 fL (80.0-100.0); Monocytes # (auto) 0.3 10 ^3/uL (0-1.3); Neutrophils % (auto) 88.2 % (37.0-80.0); Nucleated Red Blood Cells % 0.1 %; Red Blood Cells 3.99 10^6/uL (4.0-5.20); Red Cell Distribution Width 20.2 % (11.8-14.3); White Blood Cell 5.6 10^3/uL (4.4-10.8)
[2023-04-13 14:59] LABS: Alanine Aminotransferase 273 U/L (7-40); Albumin 3.8 g/dL (3.2-4.8); Alkaline Phosphatase 211 U/L (46-116); Anion Gap 9 (5-15); Aspartate Aminotransferase 141 U/L (13-40); BUN/Creatinine Ratio 18.5 (10.0-20.0); Bilirubin, Total 1.5 mg/dL (0.2-1.0); Blood Urea Nitrogen 17 mg/dL (9-23); Calcium 8.8 mg/dL (8.5-10.1); Carbon Dioxide 28 mmol/L (20-30); Chloride 90 mmol/L (98-107); Glucose 132 mg/dL (74-106); Potassium 3.1 mmol/L (3.5-5.1); Sodium 127 mmol/L (136-145); Total Protein 6.6 g/dL (5.7-8.2)
[2023-04-13] MEDS ORDERED: POTASSIUM CHL 20 Meq TABLET PO ONE (15:45)
[2023-04-13] MEDS ORDERED: AMIODARONE HCL 200 MG TAB PO ONE (16:00)
[2023-04-13] MEDS: ACETAMINOPHEN 325 MG TAB PO PRN (20:12)
[2023-04-13] MEDS: LORazepam 0.5 MG TAB PO PRN (22:17)
[2023-04-14] VITALS (9 sets, daily range): BP systolic 112–124; BP diastolic 40–55; PULSE 60–95; RESP 16–18; TEMP 97.4–98; O2SAT 90–100
[2023-04-14] MEDS: FUROSEMIDE INJECTION 100 MG in D5W 5% 100 ML IV SCH ×3 (03:32→18:30)
[2023-04-14 06:33] LABS: Urine Bacteria FEW /hpf (None Seen); Urine Blood Negative /uL (Negative); Urine Clarity Clear (Clear); Urine Protein, UAD Negative (Negative); Urine Specific Gravity 1.006 (1.001-1.035); Urine Urobilinogen Normal (Negative); Urine WBC 3 /hpf (0 - 5); Urine pH 6.5 (5.0-8.0)
[2023-04-14 06:37] LABS: Urine Color Straw (Yellow)
[2023-04-14] MEDS: LEVOTHYROXINE SODIUM 50 MCG TAB PO SCH (06:48)
[2023-04-14] MEDS: ENOXAPARIN SOD 30 MG/0.3 ML SYRINGE SC SCH (09:54)
[2023-04-14] MEDS: ASPirin 81 mg TAB PO SCH (09:55)
[2023-04-14] MEDS: AMIODARONE HCL 200 MG TAB PO SCH (09:56)
[2023-04-14] MEDS: ATENOLOL 50 MG TAB PO SCH (09:58)
[2023-04-14] MEDS: levoFLOXacin 250MG 50 ML IV SCH (11:17)
[2023-04-14] MEDS ORDERED: BISACODYL 5 MG EC TAB PO ONE (12:45)
[2023-04-14] MEDS ORDERED: BISACODYL 5 MG EC TAB PO PRN (12:45)
[2023-04-14 13:42] LABS: Albumin 3.9 g/dL (3.2-4.8); Bilirubin, Direct 0.9 mg/dL (<0.3); Bilirubin, Total 1.6 mg/dL (0.2-1.0)
[2023-04-14 13:43] LABS: Total Protein 6.9 g/dL (5.7-8.2)
[2023-04-14] MEDS: LORazepam 0.5 MG TAB PO PRN (21:38)
[2023-04-15] VITALS (16 sets, daily range): BP systolic 96–128; BP diastolic 47–72; PULSE 63–91; RESP 12–20; TEMP 97.2–98.2; O2SAT 91–99
[2023-04-15] MEDS: FUROSEMIDE INJECTION 100 MG in D5W 5% 100 ML IV SCH ×2 (04:30→14:30)
[2023-04-15] MEDS: LEVOTHYROXINE SODIUM 50 MCG TAB PO SCH (06:34)
[2023-04-15] MEDS: ENOXAPARIN SOD 30 MG/0.3 ML SYRINGE SC SCH (10:00)
[2023-04-15] MEDS: levoFLOXacin 250MG 50 ML IV SCH (10:02)
[2023-04-15] MEDS: ASPirin 81 mg TAB PO SCH (10:04)
[2023-04-15] MEDS: AMIODARONE HCL 200 MG TAB PO SCH (10:04)
[2023-04-15] MEDS: ATENOLOL 50 MG TAB PO SCH (10:07)
[2023-04-15] MEDS ORDERED: LIDOCAINE 2%HCL (LOCAL ANESTH.) INJ 20ML MDV ONE (12:52)
[2023-04-15] MEDS ORDERED: IOHEXOL 350 MG/ML 100ML IJ ONE (12:52)
[2023-04-15] MEDS ORDERED: MIDAZOLAM HCL 2MG/2ML 2ml VIAL (1mg/ml) ONE (13:32)
[2023-04-15] MEDS ORDERED: SODIUM CHL 0.9% 50 ML ONE (13:32)
[2023-04-15] MEDS ORDERED: fentaNYL CITRATE 100 MCG/2 ML VL ONE (13:32)
[2023-04-15] MEDS ORDERED: ANGIOMAX 250 MG VIAL IV ONE (13:32)
[2023-04-15] MEDS ORDERED: ATROPINE SULF 1 MG/10ml SYR ONE (13:52)
[2023-04-15] MEDS ORDERED: EPINEPHrine HCL 1 MG/10 ML SYRG ONE (13:52)
[2023-04-15] MEDS ORDERED: CLOPIDOGREL 300 MG TAB ONE (13:57)
[2023-04-15] MEDS: LORazepam 0.5 MG TAB PO PRN (21:49)
[2023-04-16] VITALS (9 sets, daily range): BP systolic 87–122; BP diastolic 48–88; PULSE 73–88; RESP 17–18; TEMP 97.5–98.2; O2SAT 93–100
[2023-04-16] MEDS: FUROSEMIDE INJECTION 100 MG in D5W 5% 100 ML IV SCH (00:30)
[2023-04-16] MEDS: CLOPIDOGREL BISULFATE 75 MG TAB PO SCH (09:32)
[2023-04-16] MEDS: levoFLOXacin 250MG 50 ML IV SCH (09:32)
[2023-04-16] MEDS: ASPirin 81 mg TAB PO SCH (09:33)
[2023-04-16] MEDS: AMIODARONE HCL 200 MG TAB PO SCH (09:33)
[2023-04-16] MEDS: ATENOLOL 50 MG TAB PO SCH (09:34)
[2023-04-16 14:52] LABS: Basophils # (auto) 0 10 ^3/uL (0-0.2); Basophils % (auto) 0.3 % (0.0-2.0); Eosinophils # (auto) 0.1 10 ^3/uL (0-0.8); Eosinophils % (auto) 1.3 % (0.0-7.0); Hematocrit 35.7 % (36.0-46.0); Hemoglobin 11.8 g/dL (12.2-16.2); Lymphocytes # (auto) 0.3 10 ^3/uL (0.4-5.4); Lymphocytes % (auto) 5.6 % (10.0-50.0); Mean Corpuscular Hgb Conc. 33.2 g/dL (32.0-36.0); Mean Corpuscular Volume 87.5 fL (80.0-100.0); Monocytes # (auto) 0.3 10 ^3/uL (0-1.3); Monocytes % (auto) 5.6 % (0.0-12.0); Neutrophils # (auto) 4.9 10 ^3/uL (1.6-8.6); Neutrophils % (auto) 87.2 % (37.0-80.0); Red Blood Cells 4.09 10^6/uL (4.0-5.20); Red Cell Distribution Width 20.3 % (11.8-14.3); White Blood Cell 5.6 10^3/uL (4.4-10.8)
[2023-04-16 15:04] LABS: Chloride 90 mmol/L (98-107); Potassium 3.9 mmol/L (3.5-5.1); Sodium 125 mmol/L (136-145)
[2023-04-16 15:05] LABS: Anion Gap 5 (5-15); Carbon Dioxide 30 mmol/L (20-30)
[2023-04-16 15:06] LABS: Calcium 8.5 mg/dL (8.5-10.1)
[2023-04-16 15:10] LABS: BUN/Creatinine Ratio 17.2 (10.0-20.0); Blood Urea Nitrogen 15 mg/dL (9-23); Glucose 126 mg/dL (74-106)
[2023-04-16 16:06] LABS: Anti-Centromere B Antibody <0.2 AI (0.0-0.9); Anti-Jo-1 Antibody <0.2 AI (0.0-0.9); Anti-dsDNA Antibody <1 IU/mL (0-9); Antichromatin Antibody <0.2 AI (0.0-0.9); Antiscleroderma-70 Antibody <0.2 AI (0.0-0.9); RNP Antibody 0.3 AI (0.0-0.9); Sjogren's Anti-SS-A Antibody 0.2 AI (0.0-0.9); Sjogren's Anti-SS-B Antibody <0.2 AI (0.0-0.9); Smith Antibody <0.2 AI (0.0-0.9)
[2023-04-16] MEDS: LORazepam 0.5 MG TAB PO PRN (21:38)
[2023-04-17 05:00] VITALS: BP 115/56; PULSE 80; RESP 17; TEMP 98; O2SAT 95
[2023-04-17] MEDS: LEVOTHYROXINE SODIUM 50 MCG TAB PO SCH ×2 (06:02→07:01)
[2023-04-17 07:18] VITALS: O2SAT 100
[2023-04-17 08:00] VITALS: BP 120/52; PULSE 77; PULSE 84; RESP 18; TEMP 97.8; O2SAT 96
[2023-04-17] MEDS: CLOPIDOGREL BISULFATE 75 MG TAB PO SCH (09:03)
[2023-04-17] MEDS: AMIODARONE HCL 200 MG TAB PO SCH (09:03)
[2023-04-17] MEDS: levoFLOXacin 250MG 50 ML IV SCH (09:03)
[2023-04-17] MEDS: ASPirin 81 mg TAB PO SCH (09:03)
[2023-04-17] MEDS: ATENOLOL 50 MG TAB PO SCH (09:04)
[2023-04-17 12:00] VITALS: BP 98/48; PULSE 69; RESP 18; TEMP 97; O2SAT 97
[2023-04-17 12:06] LABS: Mitochondrial (M2) Antibody <20.0 Units (0.0-20.0)
[2023-04-17] MEDS ORDERED: SODIUM CHL 3% 500 ML IV ONE (13:00)
[2023-04-17 16:00] VITALS: BP 135/54; PULSE 84; RESP 18; TEMP 97.2; O2SAT 100
[2023-04-17 16:22] VITALS: BP 98/45; PULSE 69; RESP 18; TEMP 97.5; O2SAT 97
== END 2023-04-17 17:10 | DRG 322 ==
LOC: ER 20:37 → EDBD 20:37 → TELE 04-11 01:06 → TELE-CENTR 04-12 00:36
PROVIDERS: ADMIT Nurse Practitioner; ATTEND Internal Medicine Cardiovascular Disease
PROC: 05HC33Z Insertion of Infusion Device into Left Basilic Vein, Percutaneous Approach (ICD-10-PCS; 2023-04-14)
PROC: B54NZZA Ultrasonography of Left Upper Extremity Veins, Guidance (ICD-10-PCS; 2023-04-14)
PROC: B2111ZZ Fluoroscopy of Multiple Coronary Arteries using Low Osmolar Contrast (ICD-10-PCS; principal; 2023-04-15)
PROC: 027034Z Dilation of Coronary Artery, One Artery with Drug-eluting Intraluminal Device, Percutaneous Approach (ICD-10-PCS; 2023-04-15)
PROC: B2151ZZ Fluoroscopy of Left Heart using Low Osmolar Contrast (ICD-10-PCS; 2023-04-15)
PROC: 4A023N7 Measurement of Cardiac Sampling and Pressure, Left Heart, Percutaneous Approach (ICD-10-PCS; 2023-04-15)
DX: I25.10 Atherosclerotic heart disease of native coronary artery without angina pectoris (principal); I13.0 Hypertensive heart and chronic kidney disease with heart failure and stage 1 through stage 4 chronic kidney disease, or unspecified chronic kidney disease; E87.1 Hypo-osmolality and hyponatremia; N39.0 Urinary tract infection, site not specified; I50.20 Unspecified systolic (congestive) heart failure; R74.01 Elevation of levels of liver transaminase levels; N18.9 Chronic kidney disease, unspecified; E78.00 Pure hypercholesterolemia, unspecified; M48.061 Spinal stenosis, lumbar region without neurogenic claudication; K76.0 Fatty (change of) liver, not elsewhere classified; E03.9 Hypothyroidism, unspecified; Z90.49 Acquired absence of other specified parts of digestive tract; Z90.710 Acquired absence of both cervix and uterus; Z88.1 Allergy status to other antibiotic agents
CPT/HCPCS: 36415; 71045; 76705; 80048; 80053; 80076; 81001; 82390; 82728; 83516; 83735; 83880; 84443; 84484; 85025; 85610; 85730; 86225; 86235; 92920; 93005; 93458; 97110; 97116; 97163; 97530; 99152; G0378; J2250; J7060

== ENCOUNTER → 2023-05-20 | Outpatient (CLI) | payer MEDICARE, OTHER ==
[~2023-05-20] MED LIST changes: +AMIO200T33 PO; -ATEN-60 PO; +ATEN50TA PO; +DOCU-94 PO; +FURO40TA4 PO; +FUROSEMIDE 100 MG/10ML VIAL IV ONE; +FUROSEMIDE 40 MG/4 ML VIAL ONE; +LORA-655 PO; +POTA-220 PO; +POTASSIUM CHL 20 Meq TABLET PO ONE
[2023-05-20 11:30] VITALS: BP 132/68; PULSE 78; RESP 18; O2SAT 97
[2023-05-20 12:20] VITALS: BP 124/70; PULSE 90; RESP 18; O2SAT 97
== END | disposition home or self-care (01) ==
LOC: CHF HDHVI 11:33
PROVIDERS: ATTEND Internal Medicine Cardiovascular Disease
DX: R60.0 Localized edema (principal)
CPT/HCPCS: 96374; G0463; J1940

== ENCOUNTER 2023-06-13 12:57 | Inpatient (IN) | payer MEDICARE, OTHER ==
[~2023-06-13] VITALS: Ht 167.6 cm; Wt 67.0 kg
[~2023-06-13 12:57] MED LIST changes: +FOSF3POW PO; -FUROSEMIDE 100 MG/10ML VIAL IV ONE; -FUROSEMIDE 40 MG/4 ML VIAL ONE; -POTASSIUM CHL 20 Meq TABLET PO ONE
[2023-06-13] MEDS ORDERED: SODIUM CHLORIDE 0.9% 500 ML IVB ONE (13:15)
[2023-06-13 14:54] LABS: Basophils # (auto) 0 10 ^3/uL (0-0.2); Basophils % (auto) 0.6 % (0.0-2.0); Eosinophils # (auto) 0 10 ^3/uL (0-0.8); Eosinophils % (auto) 0.4 % (0.0-7.0); Hematocrit 31.9 % (36.0-46.0); Hemoglobin 10.8 g/dL (12.2-16.2); Lymphocytes # (auto) 0.2 10 ^3/uL (0.4-5.4); Lymphocytes % (auto) 5.3 % (10.0-50.0); Mean Corpuscular Hemoglobin 31.1 pg (28.0-32.0); Mean Corpuscular Hgb Conc. 33.9 g/dL (32.0-36.0); Mean Corpuscular Volume 91.5 fL (80.0-100.0); Monocytes # (auto) 0.5 10 ^3/uL (0-1.3); Monocytes % (auto) 10.5 % (0.0-12.0); Neutrophils # (auto) 3.9 10 ^3/uL (1.6-8.6); Neutrophils % (auto) 83.2 % (37.0-80.0); Red Blood Cells 3.49 10^6/uL (4.0-5.20); Red Cell Distribution Width 18.2 % (11.8-14.3); White Blood Cell 4.7 10^3/uL (4.4-10.8)
[2023-06-13 15:19] LABS: Alanine Aminotransferase 28 U/L (7-40); Alkaline Phosphatase 133 U/L (46-116); Anion Gap 10 (5-15); Aspartate Aminotransferase 56 U/L (13-40); BUN/Creatinine Ratio 10.1 (10.0-20.0); Blood Urea Nitrogen 8 mg/dL (9-23); Carbon Dioxide 23 mmol/L (20-30); Chloride 91 mmol/L (98-107); Glucose 104 mg/dL (74-106); Magnesium 1.8 mg/dL (1.6-2.6); Potassium 4.4 mmol/L (3.5-5.1); Sodium 124 mmol/L (136-145)
[2023-06-14] VITALS (9 sets, daily range): BP systolic 100–121; BP diastolic 46–67; PULSE 79–99; RESP 16–24; TEMP 97.1–98; O2SAT 93–97
[2023-06-14] MEDS ORDERED: ONDANSETRON HCL 4 MG/2 ML VIAL IV PRN (02:30)
[2023-06-14] MEDS ORDERED: ACETAMINOPHEN 325 MG TAB PO PRN (02:30)
[2023-06-14] MEDS ORDERED: AZITHROMYCIN 500MG/ 250ML 250 ML IV SCH (04:00)
[2023-06-14] MEDS: LEVOTHYROXINE SODIUM 50 MCG TAB PO SCH (08:48)
[2023-06-14 09:48] LABS: COVID19 ANTIGEN SOFIA FIA NEGATIVE (NEGATIVE)
[2023-06-14] MEDS: ASPirin 81 mg TAB PO SCH (10:14)
[2023-06-14] MEDS: AMIODARONE HCL 200 MG TAB PO SCH (10:14)
[2023-06-14] MEDS: ENOXAPARIN SOD 40 MG/0.4 ML SYRINGE SC SCH (10:15)
[2023-06-14] MEDS: ATENOLOL 50 MG TAB PO SCH (10:15)
[2023-06-14] MEDS: FUROSEMIDE 40 MG TAB PO SCH (10:15)
[2023-06-14 11:36] LABS: Urine Bacteria NONE SEEN /hpf (None Seen); Urine Blood Negative /uL (Negative); Urine Clarity HAZY (Clear); Urine Color Yellow (Yellow); Urine Hyaline Cast FEW /lpf (0 - 2); Urine Protein, UAD TRACE (Negative); Urine WBC 54 /hpf (0 - 5); Urine pH 5.5 (5.0-8.0)
[2023-06-14] MEDS ORDERED: cefTRIAXone 1GM/50ML D5W 50 ML IV ONE (13:30)
[2023-06-14] MEDS ORDERED: SODIUM CHL 3% 500 ML IV ONE (13:45)
[2023-06-14] MEDS ORDERED: MEROPENEM 1GM IVPB 100 ML IV SCH (15:00)
[2023-06-14] MEDS: MEROPENEM 1GM IVPB 100 ML IV SCH (18:13)
[2023-06-14] MEDS ORDERED: ZOFR4T PO (18:38)
[2023-06-14] MEDS ORDERED: ACE650RS PO (18:39)
[2023-06-14] MEDS ORDERED: NITR0.4S29 SL (18:39)
[2023-06-14] MEDS ORDERED: MORP15TA PO (18:41)
[2023-06-14] MEDS ORDERED: LEV100T PO (18:42)
[2023-06-14] MEDS ORDERED: CLOP75TA70 PO (18:44)
[2023-06-14] MEDS ORDERED: ASCO500T11 PO (18:45)
[2023-06-14] MEDS ORDERED: PANT40TA2 PO (18:45)
[2023-06-14] MEDS ORDERED: VITA400T4 PO (18:46)
[2023-06-14] MEDS ORDERED: ZINC100T5 PO (18:47)
[2023-06-14] MEDS ORDERED: LACTCAP35 OR (18:48)
[2023-06-14] MEDS ORDERED: CRAN600T OR (18:48)
[2023-06-14] MEDS ORDERED: MUPI2CRE17 EX (18:49)
[2023-06-14] MEDS: SODIUM CHLORIDE 0.9% 1,000 ML IV SCH ×2 (19:00→23:02)
[2023-06-14] MEDS ORDERED: LORazepam 0.5 MG TAB PO PRN (20:00)
[2023-06-15] VITALS (9 sets, daily range): BP systolic 96–115; BP diastolic 44–63; PULSE 71–91; RESP 14–17; TEMP 97–98.1; O2SAT 94–98
[2023-06-15] MEDS ORDERED: DOCUSATE SOD 100 MG CAP PO PRN (00:45)
[2023-06-15] MEDS: MEROPENEM 1GM IVPB 100 ML IV SCH (05:47)
[2023-06-15] MEDS: LEVOTHYROXINE SODIUM 50 MCG TAB PO SCH (05:47)
[2023-06-15 06:08] LABS: Basophils # (auto) 0 10 ^3/uL (0-0.2); Basophils % (auto) 0.5 % (0.0-2.0); Eosinophils # (auto) 0 10 ^3/uL (0-0.8); Eosinophils % (auto) 0.1 % (0.0-7.0); Hemoglobin 9.4 g/dL (12.2-16.2); Lymphocytes # (auto) 0.4 10 ^3/uL (0.4-5.4); Lymphocytes % (auto) 11.8 % (10.0-50.0); Mean Corpuscular Hemoglobin 30.6 pg (28.0-32.0); Mean Corpuscular Hgb Conc. 33.5 g/dL (32.0-36.0); Mean Corpuscular Volume 91.2 fL (80.0-100.0); Monocytes # (auto) 0.6 10 ^3/uL (0-1.3); Monocytes % (auto) 15.3 % (0.0-12.0); Neutrophils # (auto) 2.7 10 ^3/uL (1.6-8.6); Neutrophils % (auto) 72.3 % (37.0-80.0); Red Blood Cells 3.07 10^6/uL (4.0-5.20); Red Cell Distribution Width 18.3 % (11.8-14.3); White Blood Cell 3.7 10^3/uL (4.4-10.8)
[2023-06-15 06:30] LABS: Alanine Aminotransferase 48 U/L (7-40); Alkaline Phosphatase 144 U/L (46-116); Anion Gap 11 (5-15); BUN/Creatinine Ratio 19.8 (10.0-20.0); Blood Urea Nitrogen 18 mg/dL (9-23); Calcium 8.7 mg/dL (8.5-10.1); Carbon Dioxide 22 mmol/L (20-30); Chloride 98 mmol/L (98-107); Glucose 103 mg/dL (74-106); Potassium 3.8 mmol/L (3.5-5.1)
[2023-06-15 06:31] LABS: Albumin 3.5 g/dL (3.2-4.8); Aspartate Aminotransferase 72 U/L (13-40); Bilirubin, Total 0.9 mg/dL (0.2-1.0)
[2023-06-15 06:33] LABS: Sodium 131 mmol/L (136-145)
[2023-06-15] MEDS: ATENOLOL 50 MG TAB PO SCH (08:40)
[2023-06-15] MEDS: FUROSEMIDE 40 MG TAB PO SCH (08:41)
[2023-06-15] MEDS: AMIODARONE HCL 200 MG TAB PO SCH (08:41)
[2023-06-15] MEDS: ASPirin 81 mg TAB PO SCH (08:41)
[2023-06-15] MEDS ORDERED: cefTRIAXone 1GM/50ML D5W 50 ML IV SCH (09:00)
[2023-06-15] MEDS: SODIUM CHLORIDE 0.9% 1,000 ML IV SCH (09:30)
[2023-06-15] MEDS ORDERED: levoFLOXacin 500MG 100 ML IV ONE (09:45)
[2023-06-15] MEDS: ENOXAPARIN SOD 40 MG/0.4 ML SYRINGE SC SCH (09:52)
[2023-06-15] MEDS ORDERED: levoFLOXacin 500MG 100 ML IV SCH (10:00)
[2023-06-15 11:22] LABS: COVID19 ANTIGEN SOFIA FIA NEGATIVE (NEGATIVE)
== END 2023-06-15 17:30 | DRG 871 ==
LOC: EDBD 12:57 → ER 12:57 → OVERFLOW 06-14 02:34 → EAST 06-14 10:49
PROVIDERS: ADMIT Nurse Practitioner; ATTEND Family Medicine
DX: A41.9 Sepsis, unspecified organism (principal); J18.9 Pneumonia, unspecified organism; E87.1 Hypo-osmolality and hyponatremia; I50.22 Chronic systolic (congestive) heart failure; J44.1 Chronic obstructive pulmonary disease with (acute) exacerbation; J44.0 Chronic obstructive pulmonary disease with (acute) lower respiratory infection; N39.0 Urinary tract infection, site not specified; I11.0 Hypertensive heart disease with heart failure; R09.89 Other specified symptoms and signs involving the circulatory and respiratory systems; D64.9 Anemia, unspecified; E03.9 Hypothyroidism, unspecified; Z20.822 Contact with and (suspected) exposure to COVID-19; E78.00 Pure hypercholesterolemia, unspecified; E86.0 Dehydration; I48.91 Unspecified atrial fibrillation; R55 Syncope and collapse; Z88.1 Allergy status to other antibiotic agents; Z88.5 Allergy status to narcotic agent; Z88.8 Allergy status to other drugs, medicaments and biological substances; Z90.710 Acquired absence of both cervix and uterus; Z90.49 Acquired absence of other specified parts of digestive tract
CPT/HCPCS: 36415; 70450; 71045; 80053; 81001; 83735; 83880; 84484; 85025; 85045; 87040; 87081; 87086; 87426; 99291; G0378; J1956; J2185